=== PATIENT | female | born 1995 | race African-American/Black ===

== ENCOUNTER → 2019-11-30 13:33 | Outpatient (CLI) | payer BC, SELFPAY ==
--- NOTE | ~2019-11-30 | US_ITS ---
EXAMINATION: US OB transvaginal DATE: 11/30/2019 13:53 INDICATION: Vaginal bleeding during first trimester TECHNIQUE: Real-time pelvic transabdominal and transvaginal ultrasound was performed. COMPARISON: None. FINDINGS: The uterus measures 7.1 x 3.7 x 5.1 cm. There is a small amount of fluid in the endometria l canal without a definite gestational sac. The right ovary measures 2.8 x 2.5 x 3.7 cm. The left ova ry measures 2.3 x 1.6 x 3.4 cm. There is no free fluid in the pelvis. IMPRESSION: 1. Small amount of fluid in the endometrial canal without definite gestational sac. Reviewed, dictated and finalized at location B.
== END ==
PROVIDERS: Visit Provider Obstetrics & Gynecology
DX: O26.851 Spotting complicating pregnancy, first trimester (principal); Z3A.00 Weeks of gestation of pregnancy not specified
CPT/HCPCS: 76817

== ENCOUNTER 2022-02-04 15:43 | Outpatient (CLI) | payer BC, SELFPAY ==
[2022-02-04 16:21] LABS: Alanine Aminotransferase 15 U/L (6-35); Albumin Level 4.4 g/dL (3.5-5.1); Alkaline Phosphatase 65 U/L (38-126); Anion Gap 5 mmol/L (8-16); Aspartate Amino Transferase 23 U/L (14-36); Bilirubin,Total 0.5 mg/dL (0.2-1.3); Blood Urea Nitrogen 13 mg/dL (7-17); Calcium 9.6 mg/dL (8.4-10.2); Carbon Dioxide 26 mmol/L (22-30); Chloride 105 mmol/L (98-107); Estimated Glomerular Filt Rate > 60; Glucose 87 mg/dL (65-110); Potassium 4.3 mmol/L (3.4-5.0); Sodium 136 mmol/L (137-145)
[2022-02-04 16:22] LABS: Hemoglobin A1C 4.5 % (<5.7)
[2022-02-04 16:36] LABS: Beta HCG Quantitative < 2.39 mIU/ML
[2022-02-04 17:00] LABS: Free T4 Free Thyroxine 1.09 ng/mL (0.78-2.19)
[2022-02-06 16:39] LABS: Insulin Level Total 7.8 uIU/mL (<=19.6); LH 4.2 mIU/mL (***); Progesterone 1.3 ng/mL (***)
[2022-02-07 18:26] LABS: Testosterone Free 3.1 pg/mL (0.1-6.4); Testosterone Total 16 ng/dL (2-45)
== END 2022-02-04 15:44 | disposition home or self-care (01) ==
LOC: ANHLAB 15:44
PROVIDERS: Visit Provider Obstetrics & Gynecology
DX: E28.2 Polycystic ovarian syndrome (principal); N92.6 Irregular menstruation, unspecified
CPT/HCPCS: 36415; 80053; 83001; 83002; 83036; 83498; 83525; 84144; 84402; 84403; 84439; 84443; 84702

== ENCOUNTER 2022-06-09 16:05 | Outpatient (CLI) | payer BC, SELFPAY ==
[2022-06-09 16:56] LABS: T4 Thyroxine 7.55 ug/dL (5.53-11.0)
[2022-06-09 17:10] LABS: Thyroid Stimulating Hormone 0.388 uIU/mL (0.465-4.680)
[2022-06-11 11:51] LABS: DHEA-Sulfate 407 mcg/dL (18-391)
[2022-06-11 12:55] LABS: Progesterone 0.6 ng/mL (***)
== END 2022-06-09 16:06 | disposition home or self-care (01) ==
LOC: ANHLAB 16:07
PROVIDERS: Visit Provider Obstetrics & Gynecology
DX: E28.2 Polycystic ovarian syndrome (principal); Z87.42 Personal history of other diseases of the female genital tract
CPT/HCPCS: 36415; 82627; 84144; 84436; 84443; 84480

== ENCOUNTER 2022-06-23 15:26 | Outpatient (CLI) | payer BC, SELFPAY | END 2022-06-23 15:27 | disposition home or self-care (01) | LOC: ANHLAB 15:28 | PROVIDERS: Visit Provider Obstetrics & Gynecology | DX: R79.89 Other specified abnormal findings of blood chemistry (principal) | CPT/HCPCS: 36415; 84439 ==